=== PATIENT | female | born 1970 | race Caucasian/White ===

== ENCOUNTER → 2025-04-04 | Emergency (ER) | payer OTHER ==
[~2025-04-04] VITALS: Ht 157.5 cm; Wt 88.0 kg
[~2025-04-04] MED LIST: ACETAMINOPHEN 500 MG TABLET ONE; IBUPROFEN 400 MG TABLET ONE
[2025-04-04 13:01] VITALS: O2SAT 97
[2025-04-04] MEDS: ACETAMINOPHEN 500 MG TABLET PO ONE (13:32)
[2025-04-04] MEDS: IBUPROFEN 400 MG TABLET PO ONE (13:32)
== END | disposition home or self-care (01) ==
LOC: ER 12:58
DX: Z04.1 Encounter for examination and observation following transport accident (principal); V43.62XA Car passenger injured in collision with other type car in traffic accident, initial encounter; Y93.89 Activity, other specified; Y92.488 Other paved roadways as the place of occurrence of the external cause; Y99.8 Other external cause status
CPT/HCPCS: A4606; A4663; A9150